=== PATIENT | female | born 1985 | race Caucasian/White ===

== ENCOUNTER → 2017-02-15 | Outpatient (REF) ==
[~2017-02-15] MED LIST: NORCO 325 MG-51 TAB PO; PEPCID 20MG TAB20 MG PO; TRI-SPRINTEC 281 TAB PO; ZOFRAN 4MG T4 MG/TAB PO
== END ==
LOC: WSOH 08:15
DX: Z02.89 Encounter for other administrative examinations (principal)

== ENCOUNTER → 2017-04-12 | Outpatient (REF) | LOC: WSOH 16:45 | DX: Z02.89 Encounter for other administrative examinations (principal) ==

== ENCOUNTER → 2019-07-22 | Outpatient (CLI) | payer OTHER | LOC: MC.RAD 09:33 | DX: R59.0 Localized enlarged lymph nodes (principal) ==

== ENCOUNTER 2020-05-22 08:23 | Day surgery (SDC) | payer OTHER ==
[~2020-05-22] VITALS: Ht 154.9 cm; Wt 49.1 kg
[~2020-05-22 08:23] MED LIST changes: +FLONASEALLERGY NS; +ONE-A-DAY ESSE1 EACH PO
[2020-05-22 08:51] VITALS: BP 120/75; PULSE 76; TEMP 98.2
[2020-05-22 10:20] VITALS: BP 114/74; PULSE 80
--- NOTE | 2020-05-22 10:20 | NUR ---
Returns to bay 4 per cart after having EGD with biopsies. Arouseable and transfers from cart to recliner with two person assist. IV fluids continue to infuse right AC. Spouse in room. Call light in reach. Allowed to rest.
[2020-05-22 10:35] VITALS: BP 106/62; PULSE 91
--- NOTE | 2020-05-22 10:35 | NUR ---
More awake and given water to sip on. Spouse remains in the room.
[2020-05-22 10:50] VITALS: BP 96/65; PULSE 86
--- NOTE | 2020-05-22 10:50 | NUR ---
Sipping on water and given alaina crackers to eat. Dr. Huynh in the room now to talk with the patient and spouse.
--- NOTE | 2020-05-22 11:00 | NUR ---
Eating alaina crackers and denies difficulty swallowing or any nausea.
[2020-05-22 11:05] VITALS: BP 104/67; PULSE 88
--- NOTE | 2020-05-22 11:05 | NUR ---
More awake. Tolerated crackers and water. IV discontinued and site without redness or swelling. Patient able to dress self.
--- NOTE | 2020-05-22 11:16 | NUR ---
Dismissal instructions signed and given to both patient and spouse. Dismissed to home driven by spouse and taken to the front door per wheelchair by this RN and assisted into vehicle. Dismissal instructions in hand.
== END 2020-05-22 11:16 | disposition home or self-care (01) ==
LOC: SDCO 08:23
DX: K21.9 Gastro-esophageal reflux disease without esophagitis (principal); K29.30 Chronic superficial gastritis without bleeding; R19.7 Diarrhea, unspecified; Z88.2 Allergy status to sulfonamides; Z90.49 Acquired absence of other specified parts of digestive tract; Z20.828 Contact with and (suspected) exposure to other viral communicable diseases
CPT/HCPCS: J2250; J2405; J3010; J7030

== ENCOUNTER → 2020-07-10 | Outpatient (CLI) | payer OTHER | LOC: COL.RAD 12:55 | DX: G52.1 Disorders of glossopharyngeal nerve (principal) | CPT/HCPCS: Q9967 ==

== ENCOUNTER → 2020-08-13 | Outpatient (REF) | LOC: WSOH 09:33 | DX: Z02.89 Encounter for other administrative examinations (principal) ==

== ENCOUNTER 2020-11-04 07:23 | Day surgery (SDC) | payer OTHER ==
[~2020-11-04] VITALS: Ht 154.9 cm; Wt 48.6 kg
[2020-11-04] VITALS (7 sets, daily range): BP systolic 102–113; BP diastolic 61–69; PULSE 63–79; TEMP 97.8–99.6
[2020-11-04] MEDS ORDERED: PROBIOTIC FORMU1 CAP PO (07:47)
--- NOTE | 2020-11-04 10:35 | NUR ---
Patient returns to room 6 per cart from PACU accompanied by Jess GREEN and is awake and alert. IV fluids infusing. Temp 98.5 and room air sats 96%. Spouse in room. Taking ice chips. Denies pain or nausea at this time. Allowed to rest.
[2020-11-04] MEDS ORDERED: ZOFRAN ODT8 MG PO (10:43)
--- NOTE | 2020-11-04 10:50 | NUR ---
Denies nausea and is taking vanilla pudding. Room air sats 94%.
--- NOTE | 2020-11-04 11:05 | NUR ---
Continues to rest and spouse in room.
--- NOTE | 2020-11-04 11:20 | NUR ---
Assisted up to the bathroom and is able to void and returns to room. Gait steady. Warm blankets given.
--- NOTE | 2020-11-04 11:35 | NUR ---
Sipping on water. Offered pain medication and states that she does not need anything at this time.
--- NOTE | 2020-11-04 12:12 | NUR ---
Given dismissal instructions and voices understanding of these. IV discontinued and site is free of redness. Script for Evi was called to [facility].
--- NOTE | 2020-11-04 12:23 | NUR ---
Patient dismissed to home driven by spouse and taken to the front door per wheelchair and assisted into vehicle by this RN and instructions are in hand.
== END 2020-11-04 12:23 | disposition home or self-care (01) ==
LOC: SDCO 07:23
DX: J35.01 Chronic tonsillitis (principal); K21.9 Gastro-esophageal reflux disease without esophagitis; Z20.822 Contact with and (suspected) exposure to COVID-19; Z79.899 Other long term (current) drug therapy
CPT/HCPCS: J0330; J1100; J2175; J2405; J2704; J3010; J7120

== ENCOUNTER → 2021-02-22 | Outpatient (REF) ==
[~2021-02-22] MED LIST changes: +PROBIOTIC FORMU1 CAP PO; +ZOFRAN ODT8 MG PO
== END ==
LOC: COL.LAB 08:27
DX: Z20.822 Contact with and (suspected) exposure to COVID-19 (principal)